=== PATIENT | female | born 1980 | race Caucasian/White ===

== ENCOUNTER 2016-11-15 11:53 | Observation (INO) ==
[2016-11-15] MEDS ORDERED: *HR* Morphine 2 MG/ML SYRINGE IVP ONE (12:03)
[2016-11-15] MEDS ORDERED: 0.9 % Sodium Chloride 1,000 ML IVC ONE (12:08)
--- NOTE | 2016-11-15 12:09 | Emergency Department Note ---
Disposition Clinical Impression: Acute appendicitis Qualifiers: Acute appendicitis type: unspecified acute appendicitis type Qualified Code(s) : K35.80 - Unspecified acute appendicitis Disposition: Admitted As Inpatient Condition: Good Referrals: Joey Heller [Primary Care Provider] - Forms: Work/School Release, ED Satisfaction Letter Abdominal Pain HPI - General Chief Complaint: ED Abdominal Pain Stated Complaint: abd pain Time Seen by Provider: 11/15/16 11:59 Source: patient Mode of arrival: private vehicle Limitations: no limitations Nursing Notes Reviewed: Yes Vital Signs Reviewed: Yes - History of Present Illness HPI Narrative: 36-year-old female history of hypothyroidism who presents to the ER with a chief complaint of abdominal pain. Patient reports that yesterday she was having generalized lower abdominal pain. She states that at 3 AM this morning she woke up with right lower quadrant abdominal pain. It has been rather constant throughout the day. She denies any fevers nausea vomiting diarrhea hematuria dysuria vaginal discharge. She does report she is on day 5 of her period. She denies a history of these symptoms or abdominal surgeries. She has not taken anything for the pain yet. No other complaints. Pt Subjective Complaint: abdominal pain Onset (ago): day(s) (1) Consistency: constant Location: RLQ Pain Severity: moderate Pain Scale: 5 Quality: aching Radiation: none Migration to: RLQ Improves with: nothing Worsens with: nothing Associated symptoms: Denies: nausea, vomiting, diarrhea, fever, dysuria, hematuria Treatments prior to arrival: none - Related Data Home Medications Medication Instructions Recorded Confirmed Levothyroxine 03/25/15 03/25/15 Loratadine 03/25/15 03/25/15 Vit/FA 03/25/15 03/25/15 Robitussin Liq 03/25/15 03/25/15 Singulair 03/25/15 03/25/15 Tylenol 03/25/15 03/25/15 Previous Rx's Medication Instructions Recorded Azithromycin [Zithromax] 250 mg PO DAILY #6 tablet 03/25/15 Benzonatate [Tessalon] 100 mg PO TID #30 capsule 03/25/15 MethylPREDNISolone [Medrol] 4 mg PO BIDWM #21 tablet 03/25/15 Azithromycin [Zithromax] 250 mg PO DAILY #6 tablet 12/27/15 cephALEXin [Keflex] 500 mg PO QID #40 capsule 02/18/16 Allergies Allergy/AdvReac Type Severity Reaction Status Date / Time No Known Allergies Allergy Verified 03/25/15 14:56 All systems ED: reviewed and negative except as stated. Constitutional: Denies: fever, chills Cardiovascular: Denies: chest pain Respiratory: Denies: dyspnea Gastrointestinal: Reports: abdominal pain. Denies: nausea, vomiting, diarrhea Genitourinary: Denies: dysuria, hematuria Musculoskeletal: Denies: back pain Abdominal Pain PMH - Past Medical History Medical history: Reports: thyroid disease Female Surgical History: Reports: no surgical history Psychiatric history: Reports: no psych history - Social History Smoking status: Never smoker Alcohol use: Reports: occasionally Drug use: Reports: none Physical Exam - General Limitations: no limitations General appearance: alert, in no apparent distress - Head Head exam: atraumatic, normocephalic, normal inspection - Eye Eye exam: Present: normal appearance, EOMI - ENT ENT exam: normal exam - Neck Neck exam: Present: normal inspection - Chest Chest inspection: Present: normal inspection, symmetric chest wall rise - Respiratory Respiratory exam: Present: normal lung sounds bilaterally - Cardiovascular Cardiovascular exam: Present: normal rhythm, tachycardia, normal heart sounds - Abdominal Exam Abdominal exam: Present: soft, tenderness (Patient has moderate tenderness to palpation at the right lower quadrant without rebound, guarding or rigidity. She does have pain with right lower extremity range of motion in the right lower quadrant.), tenderness at McBurney's Point Abdominal tenderness: Present: RLQ - Extremities Exam Extremities exam: Present: normal inspection, full ROM - Expanded Upper Extremity Exam Shoulder exam: Present: normal inspection, full ROM Arm exam: Present: normal inspection, full ROM Elbow exam: Present: normal inspection, full ROM Forearm/Wrist exam: Present: normal inspection, full ROM Hand exam: Present: normal inspection, full ROM - Expanded Lower Extremity Exam Hip/Pelvis exam: Present: normal inspection, full ROM Upper leg exam: Present: normal inspection, full ROM Knee exam: Present: normal inspection, full ROM Lower leg exam: Present: normal inspection, full ROM Ankle exam: Present: normal inspection, full ROM Foot/toe exam: Present: normal inspection, full ROM - Neurological Exam Neurological exam: Present: alert - Psychiatric Psychiatric exam: Present: normal affect, normal mood - Skin Skin exam: Present: warm, dry, intact, normal color Course Course Narrative: Patient seen and examined. Vital signs reviewed. She is afebrile here slightly tachycardic at 110. Her exam shows focal right lower quadrant pain however she is not peritoneal. We will obtain a urinalysis and urine as well as Juan labs and CT scan for evaluation of appendicitis. We will give her IV fluids here for her tachycardia as well as analgesics for her pain. - Reevaluation(s) Reevaluation #1: Radiologist called discussing the patient's CT which shows acute appendicitis. I relayed this information to the patient and paged the surgeon. - Consultations Consultation #1: Case discussed with the on-call surgeon Dr. Lepe. He will be in to evaluate the patient. Vital Signs Temperature 98.3 F 11/15/16 11:56 Pulse Rate 110 11/15/16 11:56 Respiratory Rate 16 11/15/16 11:56 Blood Pressure 150/90 11/15/16 11:56 O2 Sat by Pulse Oximetry 100 11/15/16 11:56 Temperature 98.3 F 11/15/16 11:56 Pulse Rate 88 11/15/16 14:07 Respiratory Rate 16 11/15/16 14:07 Blood Pressure 145/95 11/15/16 14:07 O2 Sat by Pulse Oximetry 99 11/15/16 14:07 Oxygen Delivery Oxygen Delivery Room Air Abdominal Pain - MDM Narrative Medical decision making narrative: 36-year-old female presents to the ER with right lower quadrant abdominal pain. No other symptoms. Afebrile here normal white count. However her CT scan does shows a dilated appendix with radiology read of acute appendicitis. Case was discussed with the on-call surgeon and admitted for further management. - Lab Data Lab results reviewed: Yes I reviewed the patient's lab results. Result diagrams: 11/15/16 12:25 11/15/16 12:25 Lab Results 11/15/16 11/15/16 11/15/16 Range/Units 12:25 12:25 13:48 WBC 6.4 (4.3-11.1) K/mcL RBC 4.12 (3.82-4.97) M/mcL Hgb 11.6 (11.5-15.4) g/dL Hct 34.0 L (35.3-44.9) % MCV 82.5 L (83.0-100.0) fL MCH 28.2 (28.0-33.3) pg MCHC 34.1 (31.6-35.5) g/dL RDW 13.3 (11.5-14.5) % Plt Count 174 (140-400) K/mcL MPV 11.7 (9.4-12.4) fL Immature Gran % 0.2 (0-4) % Seg Neutrophils % 62.4 % Lymphocytes % 30.8 % Monocytes % 6.1 % Eosinophils % 0.3 % Basophils % 0.2 % Neutrophils # 4.0 (1.6-8.9) K/mcL Lymphocytes # 2.0 (0.6-4.6) K/mcL Monocytes # 0.4 (0.0-1.3) K/mcL Eosinophils # 0.0 (0.0-0.6) K/mcL Basophils # 0.0 (0.0-0.2) K/mcL Sodium 137 (136-145) mEq/L Potassium 3.6 (3.5-4.5) mEq/L Chloride 105 (98-109) mEq/L Carbon Dioxide 25 (19-29) mEq/L BUN 11 (7-20) mg/dL Creatinine 0.74 (0.57-1.11) mg/dL Est GFR ( Amer) > 60 (> 60) Est GFR (Non-Af Amer) > 60 (> 60) BUN/Creatinine Ratio 15 (6-26) Glucose 87 (70-99) mg/dL Calculated Osmolality 283 (280-300) Calcium 9.2 (8.6-10.8) mg/dL Total Bilirubin 0.5 (0.2-1.2) mg/dL Direct Bilirubin 0.2 (0.0-0.5) mg/dL Indirect Bilirubin 0.3 (0.0-1.2) mg/dL AST 23 (5-34) Units/L ALT 21 (0-55) Units/L Alkaline Phosphatase 52 (38-126) Units/L Serum Total Protein 9.5 H (6.0-8.3) g/dL Albumin 3.7 (3.5-5.0) g/dL Globulin 5.8 H (2.4-3.5) g/dL Albumin/Globulin Ratio 0.6 L (1.1-2.2) Lipase 26 (8-78) Units/L Urine Color Yellow (Yellow) Urine Clarity Clear (Clear) Urine pH 6.0 (5.0-8.0) pH Units Ur Specific [place] 1.017 (1.010-1.025) Urine Protein Negative (Neg-Trace) mg/dL Urine Glucose (UA) Normal (Normal) mg/dL Urine Ketones Negative (Negative) mg/dL Urine Blood Negative (Negative) Urine Nitrite Negative (Negative) Urine Bilirubin Negative (Negative) Urine Urobilinogen Normal (Normal) mg/dL Ur Leukocyte Esterase Negative (Negative) Ur Culture Indicated? NO (NO) Urine Test (Negative) 11/15/16 Range/Units 13:48 WBC (4.3-11.1) K/mcL RBC (3.82-4.97) M/mcL Hgb (11.5-15.4) g/dL Hct (35.3-44.9) % MCV (83.0-100.0) fL MCH (28.0-33.3) pg MCHC (31.6-35.5) g/dL RDW (11.5-14.5) % Plt Count (140-400) K/mcL MPV (9.4-12.4) fL Immature Gran % (0-4) % Seg Neutrophils % % Lymphocytes % % Monocytes % % Eosinophils % % Basophils % % Neutrophils # (1.6-8.9) K/mcL Lymphocytes # (0.6-4.6) K/mcL Monocytes # (0.0-1.3) K/mcL Eosinophils # (0.0-0.6) K/mcL Basophils # (0.0-0.2) K/mcL Sodium (136-145) mEq/L Potassium (3.5-4.5) mEq/L Chloride (98-109) mEq/L Carbon Dioxide (19-29) mEq/L BUN (7-20) mg/dL Creatinine (0.57-1.11) mg/dL Est GFR ( Amer) (> 60) Est GFR (Non-Af Amer) (> 60) BUN/Creatinine Ratio (6-26) Glucose (70-99) mg/dL Calculated Osmolality (280-300) Calcium (8.6-10.8) mg/dL Total Bilirubin (0.2-1.2) mg/dL Direct Bilirubin (0.0-0.5) mg/dL Indirect Bilirubin (0.0-1.2) mg/dL AST (5-34) Units/L ALT (0-55) Units/L Alkaline Phosphatase (38-126) Units/L Serum Total Protein (6.0-8.3) g/dL Albumin (3.5-5.0) g/dL Globulin (2.4-3.5) g/dL Albumin/Globulin Ratio (1.1-2.2) Lipase (8-78) Units/L Urine Color (Yellow) Urine Clarity (Clear) Urine pH (5.0-8.0) pH Units Ur Specific [place] (1.010-1.025) Urine Protein (Neg-Trace) mg/dL Urine Glucose (UA) (Normal) mg/dL Urine Ketones (Negative) mg/dL Urine Blood (Negative) Urine Nitrite (Negative) Urine Bilirubin (Negative) Urine Urobilinogen (Normal) mg/dL Ur Leukocyte Esterase (Negative) Ur Culture Indicated? (NO) Urine Test Negative (Negative) - Radiology Data Radiology results reviewed: Yes I reviewed the patient's radiology results. Abdomen/Pelvis CT 11/15/16 12:05 IMPRESSION: Acute appendicitis. There is no periappendiceal abscess or free intraperitoneal air identified. The above findings were discussed with Dr. Roa at 2:40 p.m. on 11/15/2016. D/ / 11/15/2016 14:43:14 Julio Hodges MD / jaqueline Interpreting Provider: Julio Hodges MD
--- NOTE | 2016-11-15 12:09 | Emergency Department Note ---
START Narrative - START START: I examined this patient and my medical decision-making was reviewed with the PHYSIOTHERAPY PRACTICE MANAGER/PA/Advanced Practice Nurse/Resident Physician. I agree with the documented findings, disposition and treatment plan as described except to the extent set forth below. ED attending note: Patient seen with emergency medicine resident Dr. Roa. We independently evaluated the patient. We independently had [id number] contact with the patient. Please see a copy of his note for details of the history and physical, evaluation, management and disposition of this emergency Department patient. Briefly: A 46-year-old female otherwise healthy no prior intra-abdominal surgeries presents with a day and a half of epigastric now right lower quadrant pain with voluntary guarding. Nausea but no vomiting. Last normal was last night. Appendicitis is in the differential. We will exclude with testing and then CT scan and labs. Disposition pending. Patient stable.
[2016-11-15 12:35] LABS: Basophils % 0.2 %; Eosinophils % 0.3 %; Hemoglobin 11.6 g/dL (11.5-15.4); Immature Granulocytes % 0.2 % (0-4); Lymphocytes % 30.8 %; Mean Corpuscular HGB Conc 34.1 g/dL (31.6-35.5); Mean Corpuscular Hemoglobin 28.2 pg (28.0-33.3); Mean Corpuscular Volume 82.5 fL (83.0-100.0); Mean Platelet Volume 11.7 fL (9.4-12.4); Monocytes # 0.4 K/mcL (0.0-1.3); Monocytes % 6.1 %; Platelet Count 174 K/mcL (140-400); Red Blood Count 4.12 M/mcL (3.82-4.97); Red Cell Distribution Width 13.3 % (11.5-14.5); Segmented Neutrophils % 62.4 %
[2016-11-15 12:51] LABS: Alanine Aminotransferase 21 Units/L (0-55); Albumin 3.7 g/dL (3.5-5.0); Albumin/Globulin Ratio 0.6 (1.1-2.2); Alkaline Phosphatase 52 Units/L (38-126); Aspartate Amino Transferase 23 Units/L (5-34); BUN/Creatinine Ratio 15 (6-26); Bilirubin,Direct 0.2 mg/dL (0.0-0.5); Bilirubin,Indirect 0.3 mg/dL (0.0-1.2); Bilirubin,Total 0.5 mg/dL (0.2-1.2); Blood Urea Nitrogen 11 mg/dL (7-20); Calcium 9.2 mg/dL (8.6-10.8); Carbon Dioxide 25 mEq/L (19-29); Chloride 105 mEq/L (98-109); Globulin 5.8 g/dL (2.4-3.5); Glucose 87 mg/dL (70-99); Lipase 26 Units/L (8-78); Osmolality,Calculated 283 (280-300); Potassium 3.6 mEq/L (3.5-4.5); Sodium 137 mEq/L (136-145); Total Protein 9.5 g/dL (6.0-8.3); eGFR For African Americans > 60 (> 60); eGFR For Non-African Americans > 60 (> 60)
[2016-11-15 13:57] LABS: Bilirubin,Urine Negative (Negative); Blood,Urine Negative (Negative); Clarity,Urine Clear (Clear); Color,Urine Yellow (Yellow); Glucose,Urine (UA) Normal (Normal); Ketones,Urine Negative (Negative); Leukocyte Esterase,Urine Negative (Negative); Nitrite,Urine Negative (Negative); Protein,Urine Negative (Neg-Trace); Specific Gravity,Urine 1.017 (1.010-1.025); Urobilinogen,Urine Normal (Normal)
--- NOTE | 2016-11-15 15:27 | General Surg History&Physical ---
Date of Encounter: 11/15/16 Time of Encounter: 15:25 Assessment and Plan (1) Acute appendicitis Current Visit: Yes Status: Acute Plan for laparoscopic appendectomy. Risks were discussed and she agrees to proceed. The assessment and plan as outlined above was discussed with the patient and/or family members who expressed understanding and agreement. All questions were answered. Qualifiers: Acute appendicitis type: unspecified acute appendicitis type Qualified Code (s): K35.80 - Unspecified acute appendicitis History of Present Illness HPI: Ms. Deluna is a 36 year old female with 30 hours of abdominal pain in the right lower quadrant. Past Med Surg Social Fam HX - Past Medical History Medical history: thyroid disease Psychiatric history: no psych history - Social History Smoking Status: Never smoker Smokeless Tobacco Status: No Alcohol use: occasionally Drug use: none Medications and Allergies Azithromycin [Zithromax] 250 mg PO DAILY #6 tablet 03/25/15 [Rx] Benzonatate [Tessalon] 100 mg PO TID #30 capsule 03/25/15 [Rx] Levothyroxine 03/25/15 [History] Loratadine 03/25/15 [History] MethylPREDNISolone [Medrol] 4 mg PO BIDWM #21 tablet 03/25/15 [Rx] Vit/FA 03/25/15 [History] Robitussin Liq 03/25/15 [History] Singulair 03/25/15 [History] Tylenol 03/25/15 [History] Azithromycin [Zithromax] 250 mg PO DAILY #6 tablet 12/27/15 [Rx] cephALEXin [Keflex] 500 mg PO QID #40 capsule 02/18/16 [Rx] Allergies No Known Allergies Allergy (Verified 03/25/15 14:56) Review of Systems All systems PM: reviewed and no additional remarkable complaints except as stated All systems PM: A 10-system review of systems was performed and is negative for pertinent findings except as documented above in the HPI. General Surgery Exam Initial Vital Signs Temp Pulse Resp BP Pulse Ox 98.3 F 110 16 150/90 100 11/15/16 11:56 11/15/16 11:56 11/15/16 11:56 11/15/16 11:56 11/15/16 11:56 - General physical appearance well nourished, no distress - Neck trachea midline - Cardiovascular Cardiovascular exam: Present: regular rhythm - Abdomen Abdomen general surgery: Present: soft, non tender - Integumentary Integumentary general surgery: Present: no abnormal pigmentation - Musculoskeletal Present: normal gait, normal posture - Psychiatric Psychiatric general surgery: Present: A&Ox3, oriented to person Results - Labs 11/15/16 12:25 11/15/16 12:25 Abnormal lab results Hct 34.0 % (35.3-44.9) L 11/15/16 12:25 MCV 82.5 fL (83.0-100.0) L 11/15/16 12:25 Serum Total Protein 9.5 g/dL (6.0-8.3) H 11/15/16 12:25 Globulin 5.8 g/dL (2.4-3.5) H 11/15/16 12:25 Albumin/Globulin Ratio 0.6 (1.1-2.2) L 11/15/16 12:25 Diabetes panel 11/15/16 Range/Units 12:25 Sodium 137 (136-145) mEq/L Potassium 3.6 (3.5-4.5) mEq/L Chloride 105 (98-109) mEq/L Carbon Dioxide 25 (19-29) mEq/L BUN 11 (7-20) mg/dL Creatinine 0.74 (0.57-1.11) mg/dL Glucose 87 (70-99) mg/dL Calcium 9.2 (8.6-10.8) mg/dL AST 23 (5-34) Units/L ALT 21 (0-55) Units/L Alkaline Phosphatase 52 (38-126) Units/L Albumin 3.7 (3.5-5.0) g/dL Calcium panel 11/15/16 Range/Units 12:25 Calcium 9.2 (8.6-10.8) mg/dL Albumin 3.7 (3.5-5.0) g/dL Pituitary panel 11/15/16 Range/Units 12:25 Sodium 137 (136-145) mEq/L Potassium 3.6 (3.5-4.5) mEq/L Chloride 105 (98-109) mEq/L Carbon Dioxide 25 (19-29) mEq/L BUN 11 (7-20) mg/dL Creatinine 0.74 (0.57-1.11) mg/dL Glucose 87 (70-99) mg/dL Calcium 9.2 (8.6-10.8) mg/dL Adrenal panel 11/15/16 Range/Units 12:25 Sodium 137 (136-145) mEq/L Potassium 3.6 (3.5-4.5) mEq/L Chloride 105 (98-109) mEq/L Carbon Dioxide 25 (19-29) mEq/L BUN 11 (7-20) mg/dL Creatinine 0.74 (0.57-1.11) mg/dL Glucose 87 (70-99) mg/dL Calcium 9.2 (8.6-10.8) mg/dL Total Bilirubin 0.5 (0.2-1.2) mg/dL AST 23 (5-34) Units/L ALT 21 (0-55) Units/L Alkaline Phosphatase 52 (38-126) Units/L Albumin 3.7 (3.5-5.0) g/dL All other labs normal.
[2016-11-15] MEDS ORDERED: *HR* FentaNYL (PF) 100 MCG/2 ML VIAL ONE (15:29)
[2016-11-15] MEDS ORDERED: *HR* Rocuronium Bromide 50 MG/5 ML VIAL ONE (15:30)
[2016-11-15] MEDS ORDERED: *HR* Midazolam HCl 2 MG/2 ML VIAL ONE (15:30)
[2016-11-15] MEDS ORDERED: *HR* Propofol 200 MG/20 ML VIAL IVP ONE (15:30)
[2016-11-15] MEDS ORDERED: Lidocaine -MPF 2% 2 ML VIAL ONE (15:30)
[2016-11-15] MEDS ORDERED: Bupivacaine/EPI 1:200k 0.5%PF 30 ML VIAL ONE (15:33)
[2016-11-15] MEDS ORDERED: Atracurium 50 MG/5 ML VIAL ONE (15:49)
[2016-11-15] MEDS ORDERED: Ondansetron 4 MG/2 ML VIAL IVP ONE (15:53)
--- NOTE | 2016-11-15 15:53 | Anesthesia Evaluation PreOp ---
Date of Encounter: 11/15/16 Time of Encounter: 15:51 - Past History Planned Operation: Laparoscopic Appendectomy Cardiac History: Denies any Significant Hx Pulmonary History: Denies Any Significant HX WINDOW/DISTRIBUTION CLERK History: Denies Any Significant HX Other Medical History: Thyroid Anesthesia History: Past Anesthesia (no prior surgery), Psuedocholineserase Def. (mother) Test: Negative (11/15/2016) Alcohol Use: occasionally Drug use: none Medications and Allergies Levothyroxine [Synthroid] [place] [address]/15/16 [History] Loratadine [Claritin] 10 mg PO DAILY 11/15/16 [History] Montelukast [Singulair] 10 mg PO DAILY 11/15/16 [History] Mv-Mn/FA/Vit K/Lycop/Lut/Coq10 [Daily Multivitamin Capsule] 1 each PO DAILY [History] Allergies No Known Allergies Allergy (Verified 11/15/16 15:46) - Meds/Allergy Pre-op Review Medications Reviewed: Yes Allergies Reviewed: Yes Beta Blockers on Current Med List: No Anesthesia Results - Labs 11/15/16 12:25 11/15/16 12:25 Anesthesia Exam Vital Signs/O2 Sat, Most Current Temp Pulse Resp BP Pulse Ox 98.3 F 90 15 146/104 100 11/15/16 11:56 11/15/16 15:30 11/15/16 15:30 11/15/16 15:30 11/15/16 15:30 Height: 5'6''/1.68 m Weight: 198 lbs/90.083 kg NPO (# of Hours): 8 Pain Scale: 0 Pain Scale Used: Numeric (1 - 10) - HEENT Pupil (Motor): EOMI Mallampati: II Teeth: Normal Oral Opening: Greater than 3 - WINDOW/DISTRIBUTION CLERK LOC: Oriented WINDOW/DISTRIBUTION CLERK Motor: Normal RUE, Normal LUE, Normal RLE, Normal LLE, Normal Face WINDOW/DISTRIBUTION CLERK Sensory: Normal: RUE, LUE, RLE, LLE, Face - Cardiac Rhythm: Regular Murmur: None - Pulmonary Breath Sounds: bilateral Clear Respiratory Effort: Symmetrical Anesthesia Assess/Plan ASA Score: 2 Modified Tha Scale for Level of Consciousness: Cooperative, oriented, and tranquil Anesthetic Plan: General Monitoring Plan: Standard Monitors Recovery Plan: PACU
[2016-11-15] MEDS ORDERED: CefOXitin 2,000 MG VIAL IVPB ONE (15:57)
[2016-11-15] MEDS ORDERED: Ondansetron 4 MG/2 ML VIAL ONE (16:16)
[2016-11-15] MEDS ORDERED: Dexamethasone 4 MG/ML VIAL ONE (16:16)
[2016-11-15] MEDS ORDERED: Neostigmine Methylsulfate 3 MG/3 ML SYRINGE ONE (16:35)
--- NOTE | 2016-11-15 16:37 | Discharge Summary ---
Date of Encounter: 11/15/16 Time of Encounter: 16:35 - Discharge Diagnosis (1) Acute appendicitis Priority: Primary Status: Acute Qualifiers: Acute appendicitis type: unspecified acute appendicitis type Qualified Code (s): K35.80 - Unspecified acute appendicitis - Discharge Medications Prescriptions: OxyCODONE/APAP 5/325 [Percocet 5/325 MG] 1 each PO Q6HR PRN #20 tablet PRN Reason: Pain Home Medications: Levothyroxine [Synthroid] [place] [address]/15/16 [History] Loratadine [Claritin] 10 mg PO DAILY 11/15/16 [History] Montelukast [Singulair] 10 mg PO DAILY 11/15/16 [History] Mv-Mn/FA/Vit K/Lycop/Lut/Coq10 [Daily Multivitamin Capsule] 1 each PO DAILY [History] OxyCODONE/APAP 5/325 [Percocet 5/325 MG] 1 each PO Q6HR PRN #20 tablet 11/15/16 [Rx] Allergies/Adverse Reactions: Allergies No Known Allergies Allergy (Verified 11/15/16 15:46) General Surgery Exam Initial Vital Signs Temp Pulse Resp BP Pulse Ox 98.3 F 110 16 150/90 100 11/15/16 11:56 11/15/16 11:56 11/15/16 11:56 11/15/16 11:56 11/15/16 11:56 - Incision Incision: Present: clean and dry Date of admission: 11/15/16 15:49 Primary care physician: Joey Heller - Patient Status Disposition: Home, Self-Care Condition: Good - Discharge Instructions Follow Up With: Joey Heller [Primary Care Provider] - - Hospital Course Hospital course: Ms. Deluna is a 36 year old female that underwent laparoscopic appendectomy. She is to be discharged home tonight. - Time Spent with Patient Total time spent providing and/or coordinating discharge services:
--- NOTE | 2016-11-15 16:40 | Operative Note ---
Date of procedure: 11/15/16 Pre-op diagnosis: Appendicitis Post-op diagnosis: same Procedure: Laparoscopic appendectomy Anesthesia: VALERY Surgeon: Dylon Masterson Estimated blood loss (cc): 5 Specimen: Appendix Condition: stable Disposition: same day Procedure in Detail: After informed consent, patient was taken to the operating room placed in supine position. After adequate sedation anesthesia the abdomen was prepped and draped. A 12 mm cannula was placed in the umbilicus. A 5 mm cannulas placed in suprapubic region and the left lower quadrant. Camera was inserted and the abdomen after a pneumoperitoneum. 2 Alma graspers were used to identify the base of the appendix. A appendiceal window was created. A OLGA endoscopic stapler was placed across the base. A vascular load was placed across the mesoappendix. Once the appendix was was placed in an Endobag and removed through the umbilicus. The right lower quadrant was suctioned dry no bleeding was identified. Remainder the pneumoperitoneum was evacuated. The umbilicus was closed with an 0 Vicryl suture in [id number] fashion. Skin was closed with 4-0 Vicryl suture and Dermabond.
[2016-11-15] MEDS: *HR* HYDROmorphone (PF) 1 MG/ML SYRINGE IVP PRN ×2 (17:05→17:10)
[2016-11-15] MEDS ORDERED: *HR* HYDROmorphone (PF) 1 MG/ML SYRINGE ONE (17:06)
--- NOTE | 2016-11-15 17:20 | Anesthesia Evaluation Post Op ---
Date of Encounter: 11/15/16 Time of Encounter: 17:19 - Vital Signs Vital Signs: Vital Signs/O2 Sat, Most Current Temp Pulse Resp BP Pulse Ox 98.1 F 71 16 110/70 98 11/15/16 16:54 11/15/16 17:14 11/15/16 17:14 11/15/16 17:14 11/15/16 17:14 - Lungs Lungs: Clear Ascult./Percussion - Airway Airway: Non-obstructed - Cardiovascular Regular Rate - Mental Status Mental Status: Alert & Oriented, Answers Appropriately - Pain Pain Scale: 4 Pain Scale used: Numeric (1 - 10) - Nausea Vomiting Nausea Vomiting: Not Present - Hydration Hydration: NPO, Has not voided - Discharge PostOp Status: Transfer Patient to floor
[2016-11-15] MEDS ORDERED: 0.9 % Sodium Chloride 1,000 ML IVC SCH (17:46)
[2016-11-15] MEDS ORDERED: *HR* OxyCODONE/APAP 5/325 TABLET PO PRN (17:46)
[2016-11-15] MEDS ORDERED: Ondansetron 4 MG/2 ML VIAL IVP PRN (17:46)
[2016-11-15] MEDS ORDERED: Ibuprofen 600 MG TABLET PO PRN (17:46)
[2016-11-15 21:17] VITALS: BP 129/81
== END 2016-11-15 20:50 | disposition home or self-care (01) ==
LOC: EMEROO 11:53 → 3ANU 11:53
PROVIDERS: ADMIT Surgery; ATTEND Surgery

== ENCOUNTER 2016-11-23 13:59 | Observation (INO) ==
[2016-11-23] MEDS ORDERED: 0.9 % Sodium Chloride 1,000 ML IVC ONE (14:43)
[2016-11-23 15:05] LABS: Basophils % 0.2 %; Eosinophils % 0.3 %; Immature Granulocytes % 0.6 % (0-4); Immature Platelets 6.1 % (1.1-6.1); Lymphocytes # 1.1 K/mcL (0.6-4.6); Lymphocytes % 17.3 %; Mean Corpuscular HGB Conc 33.3 g/dL (31.6-35.5); Mean Corpuscular Hemoglobin 27.6 pg (28.0-33.3); Mean Corpuscular Volume 82.9 fL (83.0-100.0); Mean Platelet Volume 11.1 fL (9.4-12.4); Monocytes # 0.5 K/mcL (0.0-1.3); Monocytes % 7.2 %; Neutrophils # 4.8 K/mcL (1.6-8.9); Platelet Count 212 K/mcL (140-400); Red Blood Count 3.98 M/mcL (3.82-4.97); Segmented Neutrophils % 74.4 %
[2016-11-23 15:16] LABS: BUN/Creatinine Ratio 10 (6-26); Blood Urea Nitrogen 8 mg/dL (7-20); Calcium 9.2 mg/dL (8.6-10.8); Carbon Dioxide 24 mEq/L (19-29); Chloride 103 mEq/L (98-109); Glucose 99 mg/dL (70-99); Osmolality,Calculated 280 (280-300); Sodium 136 mEq/L (136-145); eGFR For African Americans > 60 (> 60); eGFR For Non-African Americans > 60 (> 60)
--- NOTE | 2016-11-23 15:16 | Emergency Department Note ---
Disposition Clinical Impression: Cellulitis of abdominal wall Abscess of skin or subcutaneous tissue Qualifiers: Site of cutaneous abscess: trunk Site of cutaneous abscess of trunk: umbilicus Qualified Code(s): L02.216 - Cutaneous abscess of umbilicus Disposition: Admitted As Inpatient Condition: Fair Referrals: Joey Heller [Primary Care Provider] - Forms: ED Satisfaction Letter Time of Disposition: 19:40 General Adult HPI - General Chief complaint: ED Skin/Abscess/Foreign Body Stated complaint: Incision drainage s/p appendectomy sx 1wk ago Time Seen by Provider: 11/23/16 14:14 Source: patient Limitations: no limitations Nursing Notes Reviewed: Yes Vital Signs Reviewed: Yes - History of Present Illness HPI Narrative: Patient is a 36-year-old female who presents to [facility] ED with a chief complaint of drainage from her incision site. Patient had a appendectomy done by Dr. Masterson on 11/15/16. States she had been doing well afterwards until Thursday when she started spiking fevers up to 101.4. She noticed that there was increasing redness around her umbilical incision site. She was seen in the emergency department and was prescribed Bactrim and Keflex. States since going home, the fevers have improved and the area of redness has gone down. However it is more indurated and started draining today. Has been draining a brownish fluid. Denies any nausea, vomiting, chest pain, shortness breath, problems with urination or bowel movements. States she has had abdominal pain since the surgery but it has been pretty consistent and not any worse. Onset (ago): day(s) Location: abdomen Radiation: non-radiation Pain Severity: mild Pain Scale: 3 Quality: aching Consistency: constant Improves with: nothing Worsens with: nothing Associated symptoms: Reports: fever/chills. Denies: chest pain, cough, nausea/ vomiting, shortness of breath, weakness Treatments Prior to Arrival: none - Related Data Home Medications Medication Instructions Recorded Confirmed Levothyroxine [Synthroid] 112 mcg PO 0630 11/15/16 11/15/16 Loratadine [Claritin] 10 mg PO DAILY 11/15/16 11/15/16 Montelukast [Singulair] 10 mg PO DAILY 11/15/16 11/15/16 Mv-Mn/FA/Vit K/Lycop/Lut/Coq10 1 each PO DAILY 11/15/16 11/15/16 [Daily Multivitamin Capsule] Previous Rx's Medication Instructions Recorded OxyCODONE/APAP 5/325 [Percocet 1 each PO Q6HR PRN #20 tablet 11/15/16 5/325 MG] Cephalexin [Keflex] 500 mg PO TID #30 capsule 11/22/16 Sulfamethoxazole/Trimeth DS 1 each PO BID #20 tablet 11/22/16 [Bactrim DS] Allergies Allergy/AdvReac Type Severity Reaction Status Date / Time No Known Allergies Allergy Verified 11/15/16 15:46 All systems ED: reviewed and negative except as stated. Past Medical History - Past Medical History Attestation: Yes The following information was validated with the patient. Source: patient Medical history: Reports: thyroid disease Psychiatric history: Reports: no psych history - Social History Smoking Status: Never smoker Smokeless Tobacco Status: No Alcohol use: Reports: occasionally Drug use: Reports: none Physical Exam - General Limitations: no limitations General appearance: alert - Head Head exam: atraumatic, normocephalic, normal inspection - Eye Eye exam: Present: normal appearance, PERRL, EOMI - ENT ENT exam: normal exam, normal oropharynx, mucous membranes moist - Neck Neck exam: Present: normal inspection, full ROM, trachea midline - Chest Chest inspection: Present: normal inspection, symmetric chest wall rise - Respiratory Respiratory exam: Present: normal lung sounds bilaterally - Cardiovascular Cardiovascular exam: Present: normal rhythm, tachycardia - Abdominal Exam Abdominal exam: Present: soft, normal bowel sounds, incision (umbilical) Abdominal tenderness: Present: diffuse, mild - Extremities Exam Extremities exam: Present: normal inspection, full ROM. Absent: tenderness, pedal edema - Back Exam Back exam: Present: normal inspection - Neurological Exam Neurological exam: Present: alert - Psychiatric Psychiatric exam: Present: normal affect, normal mood - Skin Skin exam: Present: warm, dry, intact, normal color, erythema (around umbilical incision, indurated) Course Course Narrative: Patient seen and examined. Recently had appendectomy and then cellulitis around the umbilical incision site. Bedside ultrasound did show fluid tracking deeper. I spoke with surgeon Dr. Lowry who would like a CT abdomen and pelvis with IV and oral contrast to evaluate. This has been ordered. We will also get a CBC, BMP and a lactate. Will give 1 L IV fluids. Patient not requesting anything for nausea or pain at this time. - Reevaluation(s) Reevaluation #1: CT abdomen and pelvis took several hours to results due to some sort of error in the system. It was finally read by radiologist and shows a large abscess 2.9 x 5 cm that extends down to the anterior abdominal wall. Findings were relayed to surgeon Dr. Lowry, who has accepted patient for admission. We will place patient on IV vancomycin. Time: 19:39 Vital Signs Temperature 98.4 F 11/23/16 14:01 Pulse Rate 108 11/23/16 14:01 Respiratory Rate 18 11/23/16 14:01 Blood Pressure 139/88 11/23/16 14:01 O2 Sat by Pulse Oximetry 100 11/23/16 14:01 Temperature 98.4 F 11/23/16 14:01 Pulse Rate 108 11/23/16 14:01 Respiratory Rate 18 11/23/16 14:01 Blood Pressure 139/88 11/23/16 14:01 O2 Sat by Pulse Oximetry 100 11/23/16 14:01 Medical Decision Making - Medical Records Medical records reviewed: Yes I reviewed the patient's medical records. - Lab Data Lab results reviewed: Yes I reviewed the patient's lab results. Result diagrams: 11/23/16 14:58 11/23/16 14:58 Lab Results 11/23/16 11/23/16 11/23/16 Range/Units 14:58 14:58 14:58 WBC 6.4 (4.3-11.1) K/mcL RBC 3.98 (3.82-4.97) M/mcL Hgb 11.0 L (11.5-15.4) g/dL Hct 33.0 L (35.3-44.9) % MCV 82.9 L (83.0-100.0) fL MCH 27.6 L (28.0-33.3) pg MCHC 33.3 (31.6-35.5) g/dL RDW 13.0 (11.5-14.5) % Plt Count 212 (140-400) K/mcL MPV 11.1 (9.4-12.4) fL Immature Gran % 0.6 (0-4) % Seg Neutrophils % 74.4 % Lymphocytes % 17.3 % Monocytes % 7.2 % Eosinophils % 0.3 % Basophils % 0.2 % Neutrophils # 4.8 (1.6-8.9) K/mcL Lymphocytes # 1.1 (0.6-4.6) K/mcL Monocytes # 0.5 (0.0-1.3) K/mcL Eosinophils # 0.0 (0.0-0.6) K/mcL Basophils # 0.0 (0.0-0.2) K/mcL Immature Plt Fraction 6.1 (1.1-6.1) % Sodium 136 (136-145) mEq/L Potassium 4.0 (3.5-4.5) mEq/L Chloride 103 (98-109) mEq/L Carbon Dioxide 24 (19-29) mEq/L BUN 8 (7-20) mg/dL Creatinine 0.79 (0.57-1.11) mg/dL Est GFR ( Amer) > 60 (> 60) Est GFR (Non-Af Amer) > 60 (> 60) BUN/Creatinine Ratio 10 (6-26) Glucose 99 (70-99) mg/dL Calculated Osmolality 280 (280-300) Lactic Acid 0.8 (0.5-2.2) mmol/L Calcium 9.2 (8.6-10.8) mg/dL - Radiology Data Radiology results reviewed: Yes I reviewed the patient's radiology results. Abdomen/Pelvis CT 11/23/16 16:50 IMPRESSION: 1. Cellulitis centered in the periumbilical region with focal abscess in the subcutaneous soft tissues extending to the anterior abdominal wall and measuring 2.9 x 5.[address] Otherwise [address] of the abdomen and pelvis status post hysterectomy. D/ / 11/23/2016 19:19:28 Dm Nicole MD / amber Interpreting Provider: Dm Nicole MD Attestation Statement - Attestation Attestation: Patient was seen with resident physician. I reviewed the history, physical, assessment and plan, and agree with the findings. I also personally evaluated this patient and had [id number] time with this patient. 36-year-old female presents to emergency department with drainage from her umbilical incision site. Patient is one week status post laparoscopic abdominal surgery. Patient states that she had some erythema was seen in the emergency department Vinh night was started on 2 antibiotics, and discharged home. She said she noticed a drainage today and she also notes that although the redness is gotten better, she has more of a hardened area just above the umbilicus. She denies nausea vomiting or diarrhea she also denies other complaints at this time. She is here today for repeat evaluation for her incision site. On examination vital signs are stable. ENT is unremarkable. Heart and lungs normal. Abdomen is soft there is no guarding rigidity patient does have a indurated area just above the umbilicus. Bedside ultrasound reveals there is some potential fluid tracking into that area. The area is also warm and red externally. Neurologically patient is intact. Extremities show no acute abnormalities. ED course with the bedside ultrasound showing positive findings. We contacted surgery to determine what they would prefer for next course of action. CT scan of the abdomen and pelvis with IV and oral contrast was preferred. Lab tests were also obtained and the patient's pain was controlled. CT scan revealed an abscess that appeared to track from the umbilical incision down onto the abdominal wall. It was relatively large and looking at the CT scan right on top of the abdominal wall. I did talk with surgery personally about draining this and my concern was that if we attempted to drain it even through the incision, I did not know how much tissue was preventing the abscess from entering the intra-abdominal cavity. My concern was that probing the area could result in perforation through and into the abdominal wall, a complication which I did not feel comfortable risking. Instead we will start IV antibiotics , admit the patient have surgery drain the abscess while admitted. Patient remained hemodynamically stable in the emergency department. I agree with the resident physician assessment and plan.
[2016-11-23] MEDS ORDERED: Vancomycin 1,250 MG in D5% in Water 250 ML IVPB SCH (20:00)
[2016-11-23] MEDS ORDERED: *HR* OxyCODONE/APAP 5/325 TABLET PO PRN (22:51)
[2016-11-23] MEDS: Vancomycin 1,500 MG in D5% in Water 250 ML IVPB SCH (23:15)
[2016-11-23] MEDS: 0.9 % Sodium Chloride 1,000 ML IVC SCH (23:16)
[2016-11-24] MEDS: Piperacillin/Tazobactam 3.375 GM in D5% in Water (Mini-Bag+) 100 ML IVPB SCH ×3 (01:20→16:01)
[2016-11-24] MEDS ORDERED: *HR* Promethazine 25 MG/ML VIAL IVP PRN (08:01)
[2016-11-24] MEDS ORDERED: *HR* Morphine 2 MG/ML SYRINGE IVP PRN (08:01)
[2016-11-24] MEDS ORDERED: Ondansetron 4 MG/2 ML VIAL IVP PRN (08:01)
[2016-11-24] MEDS: 0.9 % Sodium Chloride 1,000 ML IVC SCH (08:29)
[2016-11-24] MEDS: Loratadine 10 MG TABLET PO SCH (08:29)
[2016-11-24] MEDS: Vancomycin 1,500 MG in D5% in Water 250 ML IVPB SCH ×2 (08:35→20:14)
[2016-11-24] MEDS: Lidocaine 1% 20 ML MDV INFILT ONE ×2 (08:36→08:37)
[2016-11-24] MEDS ORDERED: *HR* OxyCODONE/APAP 5/325 TABLET PO SCH (12:00)
[2016-11-24] MEDS ORDERED: *HR* OxyCODONE/APAP 5/325 TABLET PO PRN (14:53)
--- NOTE | 2016-11-24 14:54 | General Surg History&Physical ---
<Soila Seo A - Last Filed: 11/24/16 14:52> Date of Encounter: 11/24/16 Time of Encounter: 14:15 Assessment and Plan (1) Abscess of skin or subcutaneous tissue Current Visit: Yes Status: Acute The assessment and plan as outlined above was discussed with the patient and/or family members who expressed understanding and agreement. All questions were answered. I&D of umbilical incision Wound care Cultures IV antibiotics- Zosyn and Vancomycin Supportive care and pain control Repeat am labs Qualifiers: Site of cutaneous abscess: trunk Site of cutaneous abscess of trunk: umbilicus Qualified Code(s): L02.216 - Cutaneous abscess of umbilicus (2) Acute appendicitis Current Visit: No Status: Acute The assessment and plan as outlined above was discussed with the patient and/or family members who expressed understanding and agreement. All questions were answered. POD #9 laparoscopic appendectomy Qualifiers: Acute appendicitis type: unspecified acute appendicitis type Qualified Code (s): K35.80 - Unspecified acute appendicitis (3) DVT prophylaxis Current Visit: Yes Status: Acute The assessment and plan as outlined above was discussed with the patient and/or family members who expressed understanding and agreement. All questions were answered. Ambulate hallways TID for DVT prophylaxis History of Present Illness Chief complaint: Abdominal pain after appendectomy HPI: Ms. Deluna is a 36 year old female who is recently s/p appendectomy with Dr. Masterson on 11/15/16. She states that she began having fevers 3 days ago and reported to the ED for evaluation. She did have redness around her umbilical incision consistent with cellulitis at that time. She was send home on bactrim and keflex. She states that her fevers have improved and the redness around her umbilicus has improved. However, she began having brown drainage from her umbilical incision and presented to the ED for evaluation. She does report tenderness around her umbilical incision. Denies any nausea/vomiting. Denies any shortness of breath of chest pains. Denies any difficulty with urination. Her CT shows evidence of a post-operative fluid collection. She has been admitted to the hospital for further work-up and treatment. Past Med Surg Social Fam HX - Past Medical History Source: patient, old records reviewed Medical history: thyroid disease (hypothyroidism), other (seasonal allergies) Psychiatric history: no psych history - Past Surgical History Surgical History: appendectomy - Social History Smoking Status: Never smoker Smokeless Tobacco Status: No Alcohol use: occasionally Drug use: none Occupational status: employed Current living situation: Home - Independent Activity Level: Independent ambulation - Family History Mother Age: 55 Living Status: Still Living Hx Family Endocrine Disorder: Yes (DM type 2) Medications and Allergies Levothyroxine [Synthroid] 112 mcg PO 0630 11/15/16 [History] Loratadine [Claritin] 10 mg PO DAILY 11/15/16 [History] Montelukast [Singulair] 10 mg PO DAILY 11/15/16 [History] Mv-Mn/FA/Vit K/Lycop/Lut/Coq10 [Daily Multivitamin Capsule] 1 tab PO DAILY 11/15 [History] Cephalexin [Keflex] 500 mg PO TID #30 capsule 11/22/16 [Rx] OxyCODONE/APAP 5/325 [Percocet 5/325 MG] 1 tab PO Q6HR PRN 11/24/16 [History] Sulfamethoxazole/Trimeth DS [Bactrim DS] 1 tab PO BID 11/24/16 [History] Allergies No Known Allergies Allergy (Verified 11/15/16 15:46) Review of Systems All systems PM: reviewed and no additional remarkable complaints except as stated (in the HPI) All systems PM: A 10-system review of systems was performed and is negative for pertinent findings except as documented above in the HPI. General Surgery Exam Initial Vital Signs Temp Pulse Resp BP Pulse Ox 98.4 F 108 18 139/88 100 11/23/16 14:01 11/23/16 14:01 11/23/16 14:01 11/23/16 14:01 11/23/16 14:01 - General physical appearance well developed, well nourished, no distress - Eyes normal ocular movement - ENT normal mucosa, atraumatic, normocephalic - Neck trachea midline - Respiratory normal respiratory effort, clear to auscultation - Cardiovascular Cardiovascular exam: Present: RRR - Abdomen Abdomen general surgery: Present: bowel sounds present, soft, tender (umbilical) - Incision Incision: Present: draining, erythema (mild), purulent, indurated, open - Integumentary Integumentary general surgery: Present: warm and dry - Neurologic Present: CN 2-12 grossly intact - Psychiatric Psychiatric general surgery: Present: appropriate, oriented to person, oriented to place, oriented to time, speech is normal, memory intact Results - Labs 11/23/16 14:58 11/23/16 14:58 Abnormal lab results Hgb 11.0 g/dL (11.5-15.4) L 11/23/16 14:58 Hct 33.0 % (35.3-44.9) L 11/23/16 14:58 MCV 82.9 fL (83.0-100.0) L 11/23/16 14:58 MCH 27.6 pg (28.0-33.3) L 11/23/16 14:58 All other labs normal. - Imaging CT scan - abdomen: report reviewed CT scan - pelvis: report reviewed Additional studies: Abdomen/Pelvis CT 11/23/16 16:50 IMPRESSION: 1. Cellulitis centered in the periumbilical region with focal abscess in the subcutaneous soft tissues extending to the anterior abdominal wall and measuring 2.9 x 5.0 cm. 2. Otherwise un[address] CT of the abdomen and pelvis status post hysterectomy. D/ / 11/23/2016 19:19:28 Dm Nicole MD / amber Interpreting Provider: Dm Nicole MD - Attending Attestation I examined this patient and my medical decision-making was reviewed with the HOOP MAKER MACHINE/PA/Advanced Practice Nurse/Resident Physician. I agree with the documented findings, disposition and treatment plan as described except to the extent set forth below. <Sosa Lowry - Last Filed: 11/25/16 08:24> Date of Encounter: 11/24/16 Assessment and Plan (1) Hypothyroid Current Visit: Yes Status: Acute The assessment and plan as outlined above was discussed with the patient and/or family members who expressed understanding and agreement. All questions were answered. continue home synthroid Qualifiers: Hypothyroidism type: unspecified Qualified Code(s): E03.9 - Hypothyroidism , unspecified (2) Abscess of skin or subcutaneous tissue Current Visit: Yes Status: Acute The assessment and plan as outlined above was discussed with the patient and/or family members who expressed understanding and agreement. All questions were answered. Qualifiers: Site of cutaneous abscess: trunk Site of cutaneous abscess of trunk: umbilicus Qualified Code(s): L02.216 - Cutaneous abscess of umbilicus (3) Cellulitis of abdominal wall Current Visit: Yes Status: Acute The assessment and plan as outlined above was discussed with the patient and/or family members who expressed understanding and agreement. All questions were answered. History of Present Illness HPI: Ms. Deluna is a 36 year old female with laparoscopic appendectomy about 1 week ago. She returned to ED this past thursday with fevers and erythema surrounding umbilical incision. She was given oral antibiotics. She returned to the ED last night with brown drainage from umbilical incision and cellulitis. She was admitted for iv antibiotics. She is tender around the umbilicus but is otherwise healing well. CT scan showed an ~5cm subcutaneous fluid collection/ abscess. Review of Systems All systems PM: A 10-system review of systems was performed and is negative for pertinent findings except as documented above in the HPI. General Surgery Exam Initial Vital Signs Temp Pulse Resp BP Pulse Ox 98.4 F 108 18 139/88 100 11/23/16 14:01 11/23/16 14:01 11/23/16 14:01 11/23/16 14:01 11/23/16 14:01 - General physical appearance well developed, well nourished, no distress - Eyes normal ocular movement - ENT normal mucosa, atraumatic - Neck trachea midline - Respiratory normal expansion, normal respiratory effort, clear to auscultation - Cardiovascular Cardiovascular exam: Present: RRR, no murmurs/rubs/gallops - Abdomen Abdomen general surgery: Present: bowel sounds present, soft, tender - Incision Incision: Present: draining, purulent, indurated - Integumentary Integumentary general surgery: Present: warm and dry - Neurologic Present: CN 2-12 grossly intact - Musculoskeletal Present: normal gait, normal posture - Psychiatric Psychiatric general surgery: Present: A&Ox3, speech is normal, memory intact Results - Labs 11/25/16 06:19 11/25/16 06:19 Abnormal lab results WBC 4.1 K/mcL (4.3-11.1) L 11/25/16 06:19 RBC 3.76 M/mcL (3.82-4.97) L 11/25/16 06:19 Hgb 10.6 g/dL (11.5-15.4) L 11/25/16 06:19 Hct 31.2 % (35.3-44.9) L 11/25/16 06:19 Diabetes panel 11/25/16 Range/Units 06:19 Sodium 136 (136-145) mEq/L Potassium 4.1 (3.5-4.5) mEq/L Chloride 107 (98-109) mEq/L Carbon Dioxide 23 (19-29) mEq/L BUN 8 (7-20) mg/dL Creatinine 0.66 (0.57-1.11) mg/dL Glucose 97 (70-99) mg/dL Calcium 8.7 (8.6-10.8) mg/dL Calcium panel 11/25/16 Range/Units 06:19 Calcium 8.7 (8.6-10.8) mg/dL Pituitary panel 11/25/16 Range/Units 06:19 Sodium 136 (136-145) mEq/L Potassium 4.1 (3.5-4.5) mEq/L Chloride 107 (98-109) mEq/L Carbon Dioxide 23 (19-29) mEq/L BUN 8 (7-20) mg/dL Creatinine 0.66 (0.57-1.11) mg/dL Glucose 97 (70-99) mg/dL Calcium 8.7 (8.6-10.8) mg/dL Adrenal panel 11/25/16 Range/Units 06:19 Sodium 136 (136-145) mEq/L Potassium 4.1 (3.5-4.5) mEq/L Chloride 107 (98-109) mEq/L Carbon Dioxide 23 (19-29) mEq/L BUN 8 (7-20) mg/dL Creatinine 0.66 (0.57-1.11) mg/dL Glucose 97 (70-99) mg/dL Calcium 8.7 (8.6-10.8) mg/dL All other labs normal. - Imaging CT scan - abdomen: report reviewed, image reviewed CT scan - pelvis: report reviewed, image reviewed - Attending Attestation I examined this patient and my medical decision-making was reviewed with the HOOP MAKER MACHINE/PA/Advanced Practice Nurse/Resident Physician. I agree with the documented findings, disposition and treatment plan as described except to the extent set forth below.
[2016-11-25] MEDS: Piperacillin/Tazobactam 3.375 GM in D5% in Water (Mini-Bag+) 100 ML IVPB SCH ×2 (00:24→09:05)
[2016-11-25 06:36] LABS: Basophils % 0.2 %; Eosinophils # 0.1 K/mcL (0.0-0.6); Eosinophils % 1.9 %; Hematocrit 31.2 % (35.3-44.9); Hemoglobin 10.6 g/dL (11.5-15.4); Immature Granulocytes % 0.2 % (0-4); Lymphocytes # 1.5 K/mcL (0.6-4.6); Lymphocytes % 36.5 %; Mean Corpuscular Hemoglobin 28.2 pg (28.0-33.3); Mean Platelet Volume 11.5 fL (9.4-12.4); Monocytes # 0.4 K/mcL (0.0-1.3); Monocytes % 10.1 %; Neutrophils # 2.1 K/mcL (1.6-8.9); Platelet Count 238 K/mcL (140-400); Red Blood Count 3.76 M/mcL (3.82-4.97); Red Cell Distribution Width 13.1 % (11.5-14.5); Segmented Neutrophils % 51.1 %
[2016-11-25 06:52] LABS: BUN/Creatinine Ratio 12 (6-26); Blood Urea Nitrogen 8 mg/dL (7-20); Calcium 8.7 mg/dL (8.6-10.8); Carbon Dioxide 23 mEq/L (19-29); Chloride 107 mEq/L (98-109); Glucose 97 mg/dL (70-99); Osmolality,Calculated 280 (280-300); Potassium 4.1 mEq/L (3.5-4.5); Sodium 136 mEq/L (136-145); eGFR For African Americans > 60 (> 60); eGFR For Non-African Americans > 60 (> 60)
[2016-11-25 07:31] VITALS: BP 117/80
[2016-11-25] MEDS: Loratadine 10 MG TABLET PO SCH (09:06)
--- NOTE | 2016-11-25 10:35 | General Surgery Procedure Note ---
Date of procedure: 11/25/16 Pre-op diagnosis: Periumbilical abscess Post-op diagnosis: same Procedure: After informed consent was obtained and timeout performed, the patient's periumbilical region was prepped with Betadine. The periumbilical region was localized with 1% lidocaine- 6 mL's was used. After achieving appropriate localization, the periumbilical incision was extended and the abscess cavity opened up with the use of hemostats. The cavity was decompressed. I then packed the cavity with a quarter inch iodoform gauze covered with 4 x 4 dressing and tape to secure. The patient tolerated this well. Complications: none Anesthesia: local (1%- 6ml) Surgeon: Soila Seo Estimated blood loss (cc): 1 Pathology: none sent Condition: stable Disposition: no change
--- NOTE | 2016-11-25 10:40 | Discharge Summary ---
Date of Encounter: 11/25/16 Time of Encounter: 10:37 - Discharge Diagnosis (1) Abscess of skin or subcutaneous tissue Priority: Primary Status: Acute Qualifiers: Site of cutaneous abscess: trunk Site of cutaneous abscess of trunk: umbilicus Qualified Code(s): L02.216 - Cutaneous abscess of umbilicus (2) Acute appendicitis Priority: Secondary Status: Resolved Qualifiers: Acute appendicitis type: unspecified acute appendicitis type Qualified Code (s): K35.80 - Unspecified acute appendicitis - Discharge Medications Prescriptions: Amoxicillin/Clavulanate [Augmentin] 875 mg PO BIDWM #20 tablet Home Medications: Levothyroxine [Synthroid] 112 mcg PO 0630 11/15/16 [History] Loratadine [Claritin] 10 mg PO DAILY 11/15/16 [History] Montelukast [Singulair] 10 mg PO DAILY 11/15/16 [History] Mv-Mn/FA/Vit K/Lycop/Lut/Coq10 [Daily Multivitamin Capsule] 1 tab PO DAILY 11/15 [History] OxyCODONE/APAP 5/325 [Percocet 5/325 MG] 1 tab PO Q6HR PRN 11/24/16 [History] Amoxicillin/Clavulanate [Augmentin] 875 mg PO BIDWM #20 tablet 11/25/16 [Rx] Allergies/Adverse Reactions: Allergies No Known Allergies Allergy (Verified 11/15/16 15:46) General Surgery Exam Initial Vital Signs Temp Pulse Resp BP Pulse Ox 98.4 F 108 18 139/88 100 11/23/16 14:01 11/23/16 14:01 11/23/16 14:01 11/23/16 14:01 11/23/16 14:01 - General physical appearance well developed, well nourished, no distress - Eyes normal ocular movement - ENT normal mucosa, atraumatic, normocephalic - Neck trachea midline - Respiratory normal respiratory effort, clear to auscultation - Cardiovascular Cardiovascular exam: Present: RRR - Abdomen Abdomen general surgery: Present: bowel sounds present, soft, tender (minimal, periumbilical) - Incision Incision: Present: erythema (resolved), purulent (small amount), indurated ( minimal), open (umbilical incision) - Integumentary Integumentary general surgery: Present: warm and dry - Neurologic Present: CN 2-12 grossly intact - Musculoskeletal Present: normal gait, normal posture - Psychiatric Psychiatric general surgery: Present: appropriate, oriented to person, oriented to place, oriented to time, speech is normal, memory intact Date of admission: 11/23/16 19:55 Primary care physician: Joey Heller Discharging clinician: Soila Seo Anticipated date of discharge: 11/25/16 - Patient Status Disposition: Home, Self-Care Condition: Good Functional capacity at discharge: independent ambulation Overall status at discharge: patient is progressing back to baseline - Discharge Instructions Follow Up With: Joey Heller [Primary Care Provider] - Soila Seo CNP [Advanced Practice Nurse] - 11/26/16 9:00 am (hospital follow-up) Forms: Work/School Release Additional Instructions: #1 may shower, no tub bath or swimming for 2 weeks- Remove packing and shower prior to visits for daily packing #2 wash incisions with soap and water and pat dry daily #3 no lifting, pushing, pulling more than 15 pounds for the next 2 weeks #4 no driving until off narcotics for 24 hours and able to safely react in the car #5 may climb stairs - Diet and Activity Activity: other (See additional instructions above) Diet: advance to your usual diet - Hospital Course Hospital course: Ms. Deluna is a 36 year old female who is recently status post a laparoscopic appendectomy with Dr. Masterson on 11/15/2016. She presented to the hospital with periumbilical abscess and cellulitis. The patient was admitted to the hospital for IV antibiotics and incision and drainage of the periumbilical region. Cultures were obtained and preliminary results show no growth of bacteria. She is responding well to drainage as well as Zosyn and vancomycin. She is remained afebrile and her vital signs are stable. Her pain has significantly improved. We will begin discharge planning and transition her to oral antibiotics. She will require daily dressing changes and packing. She is then set up with follow-up in the surgery office daily for dressing changes. - Time Spent with Patient Total time spent providing and/or coordinating discharge services: Less than 30 minutes Labs on day of discharge: Labs from last 24 hours 11/25/16 11/25/16 11/25/16 08:35 06:19 06:19 WBC 4.1 L RBC 3.76 L Hgb 10.6 L Hct 31.2 L MCV 83.0 MCH 28.2 MCHC 34.0 RDW 13.1 Plt Count 238 MPV 11.5 Immature Gran % 0.2 Seg Neutrophils % 51.1 Lymphocytes % 36.5 Monocytes % 10.1 Eosinophils % 1.9 Basophils % 0.2 Neutrophils # 2.1 Lymphocytes # 1.5 Monocytes # 0.4 Eosinophils # 0.1 Basophils # 0.0 Sodium 136 Potassium 4.1 Chloride 107 Carbon Dioxide 23 BUN 8 Creatinine 0.66 Est GFR ( Amer) > 60 Est GFR (Non-Af Amer) > 60 BUN/Creatinine Ratio 12 Glucose 97 Calculated Osmolality 280 Calcium 8.7 Vancomycin Trough 9.0 L Preliminary micro results at discharge 11/24/16 07:00 Wound Culture - Preliminary Abdomen No growth.
[2016-11-25] MEDS: Vancomycin 1,500 MG in D5% in Water 250 ML IVPB SCH (10:51)
[2016-11-25] MEDS ORDERED: Aminoglycoside Consult 1 EACH MC ONE (12:34)
== END 2016-11-25 12:35 | disposition home or self-care (01) ==
LOC: EMEROO 13:59 → 3ANU 13:59
PROVIDERS: ADMIT Surgery; ATTEND Surgery